=== PATIENT | male | born 1950 | race Caucasian/White ===

== ENCOUNTER 2018-04-04 15:47 | Emergency (ER) | payer OTHER ==
[~2018-04-04] VITALS: Ht 177.8 cm; Wt 116.1 kg
[2018-04-04 16:50] LABS: ABSOLUTE BASOPHILS 0.1 thou/uL (0.0-0.2); ABSOLUTE EOSINOPHILS 0.3 thou/uL (0.0-0.7); ABSOLUTE LYMPHOCYTES 1.8 thou/uL (0.8-5.3); ABSOLUTE MONOCYTES 1.1 thou/uL (0.0-1.2); ABSOLUTE NEUTROPHILS 4.8 thou/uL (1.6-8.1); BASOPHILS 1.4 %; EOSINOPHILS 3.4 %; HEMATOCRIT 39.2 % (42.0-52.0); HEMOGLOBIN 13.4 gm/dL (14.0-18.0); LYMPHOCYTES 21.9 %; MCH 29.7 pg (26.0-34.0); MCHC 34.2 g/dL (28.0-37.0); MCV 86.9 fL (80.0-100.0); MONOCYTES 13.4 %; MPV 8.8 fl. (7.2-11.1); NUCLEATED RBCS 0 /100WBC; PLATELET COUNT* 202 thou/uL (150-400); POLYS 59.9 %; RBC 4.51 mil/uL (4.50-6.00); RDW-CV 13.8 % (10.5-14.5); WBC 8.1 thou/uL (4.0-11.0)
[2018-04-04] MEDS ORDERED: CARVEDILOL25 MG PO (16:58)
[2018-04-04] MEDS ORDERED: LEVEMIR SUBQ (16:58)
[2018-04-04] MEDS ORDERED: PROTONIX40 M1 PO (16:58)
[2018-04-04] MEDS ORDERED: LIPITOR80 MG PO (16:59)
[2018-04-04] MEDS ORDERED: HYDROCHLOROTH12.5 M1 PO (16:59)
[2018-04-04] MEDS ORDERED: CYMBALTA60 MG PO (16:59)
[2018-04-04] MEDS ORDERED: NOVOLOG100 UNIT/1 SUBQ (16:59)
[2018-04-04] MEDS ORDERED: LIPITOR 20 MG T20 M1 PO (16:59)
[2018-04-04 17:02] LABS: ANION GAP 6 mmol/L (7-16); BUN 38 mg/dL (7-18); CALCIUM 7.5 mg/dL (8.5-10.1); CHLORIDE 105 mmol/L (98-107); CO2 31 mmol/L (21-32); CREATININE 2.5 mg/dL (0.6-1.3); GLUCOSE 95 mg/dL (70-99); POTASSIUM 4.6 mmol/L (3.5-5.1); SODIUM 142 mmol/L (136-145)
[2018-04-04 17:10] LABS: ALBUMIN 3.4 g/dL (3.4-5.0); ALKALINE PHOSPHATASE 145 U/L (46-116); SGOT 24 U/L (15-37); SGPT 19 U/L (30-65); TOTAL BILIRUBIN 1.2 mg/dL (<0.1-1.0); TOTAL PROTEIN 6.8 g/dL (6.4-8.2); TROPONIN-I LEVEL <0.06 ng/mL (<0.06)
[2018-04-04] MEDS ORDERED: NORFLEX100 MG PO (17:20)
[2018-04-04] MEDS ORDERED: NORCO 5-325 TA1 EACH PO (17:20)
[2018-04-04 17:39] VITALS: BP 139/70
--- NOTE | 2018-04-05 10:44 | EKG ---
[place] [address] ELECTROCARDIOGRAM REPORT Name: SAMM MILLS Room: [facility]#: [id number] Admission: 04/04/18 Attend Phys: Discharge: 04/04/18 Date of : 48 Report #: [id number] THIS REPORT FOR: //name// [facility] ED Test Date: 2018-04-04 Test Time: 16:41:38 Pat Name: SAMM MILLS Department: Room: Gender: [employer] Attendant: Fabiana MCCARTHY : 1950 Requested By: Pamela Martinez Order Number: [id number] MD: Enrique Willis Measurements Intervals [place] Rate: 76 P: 3 MI: 181 QRS: -15 QRSD: 97 T: 24 QT: 403 QTc: 454 Interpretive Statements Sinus rhythm Borderline left axis deviation No previous ECG available for comparison Electronically Signed On 04-05-2018 10:44:32 CDT by Enrique Willis [email or web address] <ELECTRONICALLY SIGNED> By: Enrique Willis MD, [facility] 04/05/18 1044 [id number] 164 Enrique Willis MD, FACC /EPI
== END 2018-04-04 17:40 | disposition home or self-care (01) ==
LOC: M.ERS 15:47
PROVIDERS: Physician Assistant
DX: I12.9 Hypertensive chronic kidney disease with stage 1 through stage 4 chronic kidney disease, or unspecified chronic kidney disease (principal); E11.22 Type 2 diabetes mellitus with diabetic chronic kidney disease; R55 Syncope and collapse; N18.9 Chronic kidney disease, unspecified; Z79.4 Long term (current) use of insulin; E66.9 Obesity, unspecified; Z68.36 Body mass index [BMI] 36.0-36.9, adult; V89.2XXA Person injured in unspecified motor-vehicle accident, traffic, initial encounter; Y93.89 Activity, other specified; Y92.89 Other specified places as the place of occurrence of the external cause; Y99.8 Other external cause status